=== PATIENT | male | born 1960 | race Hispanic/Latino ===

== ENCOUNTER 2022-10-11 06:53 | Observation (INO) | payer BC ==
[2022-10-10 15:16] LABS: BASOPHILS % (AUTO) 0.5 % (0.0-5.0); EOSINOPHILS % (AUTO) 1.6 % (0.0-8.0); HEMATOCRIT 48.8 % (42-54); LYMPHOCYTES % (AUTO) 30.9 % (21.0-51.0); MEAN CORPUSCULAR HEMOGLOBIN 30.2 pg (27.0-33.0); MEAN CORPUSCULAR HGB CONC 33.4 g/dL (32.0-36.0); MEAN CORPUSCULAR VOLUME 90.5 fL (79-99); MONOCYTES % (AUTO) 8.6 % (3.0-13.0); NEUTROPHILS % (AUTO) 57.7 % (40.0-77.0); PLATELET COUNT (AUTO) 200 K/uL (130-400); RED BLOOD CELL COUNT(AUTO) 5.39 MIL/uL (4.50-6.20); RED CELL DISTRIBUTION WIDTH 12.2 % (11.0-15.5); WHITE BLOOD COUNT (AUTO) 7.4 K/uL (4.8-10.8)
[2022-10-10 15:33] LABS: INR 0.97 (0.85-1.15); PROTHROMBIN TIME 10.6 SEC (9.6-11.6)
[2022-10-10 15:35] VITALS: BP 106/78
[2022-10-10 15:35] LABS: PARTIAL THROMBOPLASTIN TIME 26.2 SEC (26.3-35.5)
[2022-10-10 15:42] LABS: CREATININE 1.1 mg/dL (0.5-1.5)
[2022-10-11] VITALS (30 sets, daily range): BP systolic 92–116; BP diastolic 52–74
[~2022-10-11] VITALS: Ht 177.8 cm; Wt 96.7 kg
[~2022-10-11 06:53] MED LIST: GABA300C PO; LISI5TAB21 PO; METF-446 PO; OXYB10TA30 PO; PIOG15TA66 PO; PRAV10TA39 PO; TAMS-1 PO
[2022-10-11] MEDS ORDERED: CEFAZOLIN SODIUM 2 GM VIAL ONE (07:28)
[2022-10-11] MEDS ORDERED: 0.9%NACL 1000ML 1,000 ML IV ONE (07:29)
[2022-10-11] MEDS ORDERED: SUCCINYLCHOLINE 200MG/10ML SYR ONE (10:51)
[2022-10-11] MEDS ORDERED: LIDOCAINE PF 100MG/5ML (2%) SYRINGE 5ML ONE (10:51)
[2022-10-11] MEDS ORDERED: ROCURONIUM 10MG/1ML SYR 10 MG/ML ML ONE ×2 (10:52→12:03)
[2022-10-11] MEDS ORDERED: FENTANYL CITRATE PF 50 MCG/1 ML 2ML VIAL ONE ×2 (10:52→13:37)
[2022-10-11] MEDS ORDERED: MIDAZOLAM HCL 1 MG/ML 2ML VIAL ONE (10:52)
[2022-10-11] MEDS ORDERED: PROPOFOL 10 MG/ML 20ML VIAL IV ONE (10:52)
[2022-10-11] MEDS ORDERED: TRANEXAMIC ACID 1000MG/10ML ONE (11:25)
[2022-10-11] MEDS ORDERED: CEFAZOLIN SODIUM 2 GM VIAL IVPB ONE (11:30)
[2022-10-11] MEDS ORDERED: KCL 20 MEQ ERTAB PO PRN (11:30)
[2022-10-11] MEDS ORDERED: TRANEXAMIC ACID 1000MG/10ML IV ONE (11:30)
[2022-10-11] MEDS ORDERED: MORPHINE 4 MG SYG IVP PRN (11:30)
[2022-10-11] MEDS ORDERED: POTASSIUM CHLORIDE 20MEQ/100ML 100 ML IV PRN (11:30)
[2022-10-11] MEDS ORDERED: ONDANSETRON 4MG INJ IVP PRN (11:30)
[2022-10-11] MEDS ORDERED: POTASSIUM CHLORIDE 10% ELIXIR 20 MEQ/15 ML UDCUP PO PRN (11:30)
[2022-10-11] MEDS ORDERED: HYDROCODONE/ACETAMINOPHEN 10/325 MG TAB PO PRN (11:30)
[2022-10-11] MEDS ORDERED: PHENYLEPHRINE HCL 10 MG/ML 1ML VIAL IV ONE (11:32)
[2022-10-11] MEDS: PHARMACY COMMUNICATION MISC SCH ×4 (12:00→20:43)
[2022-10-11] MEDS: TRAMADOL HCL 50 MG TABLET PO SCH ×3 (12:00→23:54)
[2022-10-11] MEDS: PIOGLITAZONE 15MG TAB PO SCH (12:00)
[2022-10-11] MEDS ORDERED: IBUPROFEN 800MG + NS 250ML IV SCH ×2 (12:30→14:30)
[2022-10-11] MEDS ORDERED: NEOSTIGMINE 5MG/5ML SYR IV ONE (12:55)
[2022-10-11] MEDS ORDERED: GLYCOPYRROLATE 1 MG/5 ML SYRINGE ONE (12:55)
[2022-10-11] MEDS: ACETAMINOPHEN 1,000 MG/100 ML VIAL IV SCH ×3 (13:25→23:54)
[2022-10-11] MEDS ORDERED: KETOROLAC 30MG VIAL (30MG/ML) ONE (13:30)
[2022-10-11] MEDS ORDERED: MEPERIDINE-PF 25 MG/ML SYG ONE (14:06)
[2022-10-11] MEDS: 0.9%NACL 1000ML 1,000 ML IV SCH ×2 (15:44→21:30)
[2022-10-11] MEDS ORDERED: CEFAZOLIN SODIUM 1 GM VIAL IVPB SCH (16:30)
[2022-10-11] MEDS: METFORMIN HCL 500 MG TABLET PO SCH (17:08)
[2022-10-11] MEDS: CEFAZOLIN SODIUM 2 GM VIAL IVPB SCH (20:05)
[2022-10-11] MEDS: GABAPENTIN 300 MG CAPSULE PO SCH (20:06)
[2022-10-11] MEDS: FAMOTIDINE 20MG TAB PO SCH (20:06)
[2022-10-11] MEDS: OXYBUTYNIN CHLORIDE 10 MG PO SCH (20:12)
[2022-10-11] MEDS ORDERED: PHARMACY COMMUNICATION MISC SCH (20:30)
[2022-10-12] VITALS: BP 103/57
[2022-10-12] MEDS: CEFAZOLIN SODIUM 2 GM VIAL IVPB SCH (02:47)
[2022-10-12 04:00] VITALS: BP 107/60
[2022-10-12 05:07] LABS: HEMATOCRIT 40.2 % (42-54); MEAN CORPUSCULAR HEMOGLOBIN 30.6 pg (27.0-33.0); MEAN CORPUSCULAR HGB CONC 33.1 g/dL (32.0-36.0); MEAN CORPUSCULAR VOLUME 92.4 fL (79-99); RED BLOOD CELL COUNT(AUTO) 4.35 MIL/uL (4.50-6.20); RED CELL DISTRIBUTION WIDTH 12.2 % (11.0-15.5); WHITE BLOOD COUNT (AUTO) 11.1 K/uL (4.8-10.8)
[2022-10-12] MEDS: TRAMADOL HCL 50 MG TABLET PO SCH ×3 (05:14→17:58)
[2022-10-12 05:18] LABS: CREATININE 1.1 mg/dL (0.5-1.5); POTASSIUM 3.8 mmol/L (3.5-5.1)
[2022-10-12] MEDS: 0.9%NACL 1000ML 1,000 ML IV SCH (07:30)
[2022-10-12 08:00] VITALS: BP 98/62
[2022-10-12] MEDS: GABAPENTIN 300 MG CAPSULE PO SCH (08:34)
[2022-10-12] MEDS: METFORMIN HCL 500 MG TABLET PO SCH ×2 (08:34→17:12)
[2022-10-12] MEDS: FAMOTIDINE 20MG TAB PO SCH (08:35)
[2022-10-12] MEDS: HYDROCODONE/ACETAMINOPHEN 5/325 MG TAB PO PRN ×3 (08:44→20:05)
[2022-10-12] MEDS ORDERED: LISINOPRIL 5 MG TABLET PO SCH (09:00)
[2022-10-12] MEDS ORDERED: ASPIRIN 81 MG EC TAB PO SCH (09:00)
[2022-10-12] MEDS ORDERED: TAMSULOSIN HCL 0.4 MG CAP.ER.24H PO SCH (09:00)
[2022-10-12] MEDS ORDERED: POLYETHYLENE GLYCOL 3350 17 GM POWD.PACK PO SCH (09:00)
[2022-10-12] MEDS: PIOGLITAZONE 15MG TAB PO SCH (11:45)
[2022-10-12] MEDS ORDERED: HYDR-4060 PO (12:08)
[2022-10-12 16:06] VITALS: BP 132/70
[2022-10-12] MEDS: OXYBUTYNIN CHLORIDE 10 MG PO SCH (21:00)
[2022-10-14] MEDS ORDERED: BISACODYL 10 MG SUPP.RECT RC PRN (11:30)
== END 2022-10-12 21:30 | disposition home or self-care (01) ==
LOC: DAH 06:53 → DAHIP 06:54 → DAH 06:54 → 4AH 15:15
PROVIDERS: ADMIT Orthopaedic Surgery; ATTEND Orthopaedic Surgery
DX: M17.12 Unilateral primary osteoarthritis, left knee (principal); Z20.822 Contact with and (suspected) exposure to COVID-19; M24.562 Contracture, left knee; E66.9 Obesity, unspecified; E11.9 Type 2 diabetes mellitus without complications; Z68.30 Body mass index [BMI] 30.0-30.9, adult; Z79.899 Other long term (current) drug therapy
CPT/HCPCS: 80048 ×2; 85025; 85610; 85730; 87426; 36415 ×2; 93926; 87641; 64447; 27447; 96376; 96365; 96375; 82948 ×6; 96366; 85027; 97161; 97039 ×2; 97116 ×2; 97530 ×2; A6260; C1776 ×4; G0378 ×31; A4663; J7030 ×2; J3010; J3490 ×3; J0330; J2710; J2001; J2250; J2704; J1885; J2175; J2370; J0690 ×4; A6223; G0168; A4649 ×3; A6212; A5120; A4215; A4223; A4222; A4221